=== PATIENT | male | born 1965 | race African-American/Black ===

== ENCOUNTER 2022-09-29 16:19 | Emergency (ER) | payer MEDICAID, OTHER ==
[~2022-09-29] VITALS: Ht 172.7 cm; Wt 87.0 kg
[2022-09-29] MEDS ORDERED: HYDROCODONE/ACETAMINOPHEN 5/325MG TABLET PO ONE (17:00)
[2022-09-29] MEDS ORDERED: MORPHINE SULFATE 10 MG/ML CPJ IM ONE (19:45)
[2022-09-29] MEDS ORDERED: T3 PO (19:47)
[2022-09-29] MEDS ORDERED: CYCL10TA21 MT (19:47)
[2022-09-29] MEDS ORDERED: IBUP-2029 MT (19:47)
[2022-09-29 20:25] VITALS: BP 169/94
== END 2022-09-29 20:25 | disposition home or self-care (01) ==
LOC: ER 16:19
DX: M25.552 Pain in left hip (principal); E78.00 Pure hypercholesterolemia, unspecified; I10 Essential (primary) hypertension; Z79.899 Other long term (current) drug therapy
CPT/HCPCS: 72131; 99284